=== PATIENT | male | born 1955 | race Caucasian/White ===

== ENCOUNTER 2019-05-11 18:55 | Outpatient (CLI) | END 2019-05-11 19:12 | disposition short-term general hospital (02) | LOC: AMBL 18:55 | PROVIDERS: ATTEND Internal Medicine | DX: R07.9 Chest pain, unspecified (principal); R00.2 Palpitations; I47.1 Supraventricular tachycardia; I48.91 Unspecified atrial fibrillation; I45.10 Unspecified right bundle-branch block; Z95.0 Presence of cardiac pacemaker; Z79.01 Long term (current) use of anticoagulants ==

== ENCOUNTER 2019-05-18 07:14 | Outpatient (CLI) | END 2019-05-18 07:15 | disposition home or self-care (01) | LOC: LAB 07:14 | PROVIDERS: ATTEND Physician Assistant Medical | DX: Z51.81 Encounter for therapeutic drug level monitoring (principal); Z79.01 Long term (current) use of anticoagulants | CPT/HCPCS: 36415; 85610 ==

== ENCOUNTER 2019-06-05 09:55 | Outpatient (CLI) | END 2019-06-05 09:56 | disposition home or self-care (01) | LOC: LAB 09:55 | PROVIDERS: ATTEND Internal Medicine Hematology & Oncology | DX: Z51.81 Encounter for therapeutic drug level monitoring (principal); Z79.01 Long term (current) use of anticoagulants | CPT/HCPCS: 36415; 85610 ==

== ENCOUNTER 2019-06-07 07:59 | Outpatient (CLI) | END 2019-06-07 08:13 | disposition short-term general hospital (02) | LOC: AMBL 07:59 | PROVIDERS: ATTEND Emergency Medicine | DX: I47.2 Ventricular tachycardia (principal); Z95.1 Presence of aortocoronary bypass graft; Z95.0 Presence of cardiac pacemaker ==